=== PATIENT | female | born 1965 | race Caucasian/White ===

== ENCOUNTER 2021-12-19 13:31 | Inpatient (IN) | payer BC ==
[~2021-12-19] VITALS: Ht 160 cm; Wt 61.0 kg
[2021-12-19] MEDS ORDERED: ONDANSETRON HCL 4MG/2ML INJ IV ONE ×2 (14:00→17:00)
[2021-12-19] MEDS ORDERED: MORPHINE SULFATE 4 MG/ML CPJ (NOT FOR IM USE) IV ONE (14:00)
[2021-12-19 14:18] LABS: PROTHROMBIN TIME 10.8 sec (9.6-11.0)
[2021-12-19 14:23] LABS: CHLORIDE 107 mEq/L (98-107)
[2021-12-19 14:24] LABS: BASOPHILS % 1.4 % (0.0-2.0); EOSINOPHILS % 1.5 % (0.0-5.0); HEMATOCRIT. 40.6 % (36.0-48.0); HEMOGLOBIN. 13.9 g/dL (12.0-16.0); LYMPHOCYTES % 48.4 % (20.0-50.0); MEAN CORPUSCULAR VOLUME 93.1 fL (81.0-99.0); MEAN PLATELET VOLUME 8.6 fl (7.4-10.4); MONOCYTES % 7.8 % (2.0-8.0); NEUTROPHILS % 40.9 % (40.0-76.0); PLATELET 301 x1000/uL (130-400); RED BLOOD CELL COUNT 4.36 mill/uL (4.2-5.4); RED CELL DISTRIBUTION WIDTH 13.1 % (11.6-14.6)
[2021-12-19 14:33] LABS: ETHANOL BLOOD 78 mg/dL
[2021-12-19] MEDS ORDERED: SODIUM CHLORIDE 0.9% 1,000 ML IV NR (14:53)
[2021-12-19] MEDS ORDERED: KETOROLAC 15MG/ML VIAL IV NR (15:00)
[2021-12-19] MEDS: MORPHINE SULFATE 4 MG/ML CPJ (NOT FOR IM USE) IV NR ×2 (15:01→15:21)
[2021-12-19 15:41] LABS: CLARITY URINE CLEAR (CLEAR); COLOR URINE YELLOW (YELLOW); KETONES URINE TRACE (NEGATIVE); LEUKOCYTE ESTERASE URINE 1+ (NEGATIVE); NITRITE URINE NEGATIVE (NEGATIVE); OCCULT BLOOD URINE NEGATIVE (NEGATIVE); PH URINE 7.5 (4.5-8.0); PROTEIN URINE NEGATIVE (NEGATIVE); SPECIFIC GRAVITY URINE 1.009 (1.005-1.030); UROBILINOGEN URINE 0.2 E.U./dL (0.2-1.0)
[2021-12-19] MEDS ORDERED: HYDROMORPHONE HCL/PF 2MG/ML CPJ IV ONE ×3 (15:45→17:00)
[2021-12-19] MEDS ORDERED: TAMSULOSIN HCL 0.4MG SR CAPSULE PO ONE (15:45)
[2021-12-19 16:01] LABS: *AMPHETAMINES SCREEN URINE NEGATIVE (NEGATIVE); *BARBITURATES SCREEN URINE NEGATIVE (NEGATIVE); *BENZODIAZEPINES SCREEN URINE NEGATIVE (NEGATIVE); *COCAINE SCREEN URINE NEGATIVE (NEGATIVE); CANNABINOID URINE SCREEN NEGATIVE (NEGATIVE); METHADONE URINE SCREEN NEGATIVE (NEGATIVE); OPIATES URINE SCREEN PRESUMTIVE POSITIVE (NEGATIVE); PHENCYCLIDINE URINE SCREEN NEGATIVE (NEGATIVE)
[2021-12-19] MEDS ORDERED: KETOROLAC 15MG/ML VIAL IV ONE (17:00)
[2021-12-19 20:00] VITALS: BP 148/87
[2021-12-19] MEDS ORDERED: DIPHENHYDRAMINE 50MG/ML VIAL IV PRN (20:30)
[2021-12-19] MEDS ORDERED: ZOLPIDEM TARTRATE 5MG TABLET PO PRN (20:30)
[2021-12-19] MEDS ORDERED: ACETAMINOPHEN 325MG TABLET PO PRN ×2 (20:30)
[2021-12-19] MEDS ORDERED: ONDANSETRON HCL 4MG/2ML INJ IV PRN (20:30)
[2021-12-19] MEDS ORDERED: KETOROLAC 30MG/ML VIAL IV PRN (20:30)
[2021-12-19] MEDS ORDERED: MAGNESIUM/ALUMINUM HYDROXIDE/SIMETHICONE 30ML UDC PO PRN (20:30)
[2021-12-19] MEDS ORDERED: CLONIDINE 0.1MG TABLET PO PRN (20:30)
[2021-12-19] MEDS: HYDROMORPHONE HCL/PF 2MG/ML CPJ IV PRN (22:29)
[2021-12-19] MEDS: DEXT 5%/0.45% NACL 1000ML 1,000 ML IV SCH (22:30)
[2021-12-19 23:36] VITALS: BP 148/87
[2021-12-20] VITALS: BP 105/60
[2021-12-20 04:02] VITALS: BP 111/66
[2021-12-20] MEDS: DEXT 5%/0.45% NACL 1000ML 1,000 ML IV SCH (05:27)
[2021-12-20] MEDS: HYDROMORPHONE HCL/PF 2MG/ML CPJ IV PRN (05:31)
[2021-12-20 08:00] VITALS: BP 99/61
[2021-12-20] MEDS ORDERED: AMLODIPINE 2.5MG TABLET PO SCH (09:00)
[2021-12-20] MEDS ORDERED: TAMSULOSIN HCL 0.4MG SR CAPSULE PO SCH (09:00)
[2021-12-20 12:00] VITALS: BP 102/64
[2021-12-20 13:54] VITALS: BP 104/55
== END 2021-12-20 14:45 | disposition home or self-care (01) | DRG 694 ==
LOC: ER 13:31 → 6EST 17:01 → ENRESERV 19:24
PROVIDERS: ADMIT Internal Medicine; ATTEND Internal Medicine
DX: N13.2 Hydronephrosis with renal and ureteral calculous obstruction (principal); I10 Essential (primary) hypertension; Z90.49 Acquired absence of other specified parts of digestive tract; Z88.2 Allergy status to sulfonamides; Z98.891 History of uterine scar from previous surgery
CPT/HCPCS: 36415; 74176; 80053; 80305; 80320; 81003; 83605; 85025; 93005; 99285; J1170; J1885; J2270; J2405; G0480